=== PATIENT | female | born 1970 | race Caucasian/White ===

== ENCOUNTER 2019-03-03 08:16 | Emergency (ER) | payer MEDICAID, OTHER ==
[~2019-03-03] VITALS: Ht 157.5 cm; Wt 89.0 kg
[2019-03-03 08:19] VITALS: BP 134/82; PULSE 75; RESP 16; Ht 157.5 cm; Wt 89.0 kg
[2019-03-03] MEDS ORDERED: KETOROLAC 30 MG INJ IM STA (08:41)
[2019-03-03] MEDS ORDERED: NAPR-985 PO (09:51)
--- NOTE | 2019-03-03 16:44 | ERD ---
ER Documentation Chief Complaint Chief Complaint RT KNEE AND CALF PAIN X 3 WEEKS , DENIES ANY INJURY HPI Patient is a 48-year-old female, no past medical history, presents the ER for concerns of right knee pain x3 weeks.. Contrary note, patient does not have complaints of calf pain. Patient says she is also having foot pain. She denies of falls or trauma. 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 Patient denies any fevers or chills. Patient denies any redness to the affected joint. Patient is able to ambulate. Patient has been taking ibuprofen with no alleviation of symptoms. Patient denies any hormonal use, unilateral leg swelling, recent air travel or history of recent surgeries. Patient denies previous history of DVT. ROS All systems reviewed and are negative except as per history of present illness. Medications Home Meds Active Scripts Naproxen* (Naprosyn*) 500 Mg Tablet, 500 MG PO BID PRN for PAIN AND/OR INFLAMMATION, #15 TAB Prov:SHIREEN URBAN PA-C 03/03/19 Allergies Allergies: Coded Allergies: No Known Allergy (Unverified , 03/03/19) PMhx/Soc Hx Alcohol Use: No Hx Substance Use: No Hx Tobacco Use: No Smoking Status: Never smoker FmHx Family History: No diabetes Physical Exam Vitals Vital Signs Date Temp Pulse Resp B/P (MAP) Pulse Ox O2 O2 Flow FiO2 Time Delivery Rate 03/03/19 97.9 75 16 134/82 97 08:19 (99) Physical Exam GENERAL: Well-developed, well-nourished female. Appears in no acute distress. HEAD: Normocephalic, atraumatic. EYES: Pupils are equally reactive bilaterally. EOMs grossly intact. No conjunctival erythema. ENT: Moist mucous membranes. No uvula deviation. No kissing tonsils. NECK: Supple. No meningismus. Normal range of motion of the neck. LUNG: Clear to auscultation bilaterally. No rhonchi, wheezing, rales or coarse breath sounds. HEART: Regular rate and rhythm. No murmurs, rubs or gallops. EXTREMITIES: Equal pulses bilaterally. No peripheral clubbing, cyanosis or edema. No unilateral leg swelling. NEUROLOGIC: Alert and oriented. Moving all four extremities without any difficulty. Normal speech. Steady gait. SKIN: Normal color. Warm and dry. No rashes or lesions. RLE: No deformity, erythema, ecchymosis. Mild swelling noted to the anterior knee. Tender to palpation over the tibial tuberosity. Tender to palpation over the tibial tuberosity. Sensation intact to light touch. Neurovascularly intact. (Able to plantarflex, dorsiflex, elina foot, invert foot, raise big toe.) 2+ DP and DT pulses. No calf swelling. No pain with dorsiflexion. No palpable cords. Results 24 hrs Laboratory Tests Test 03/03/19 08:44 POC Beta HCG, Qualitative NEGATIVE Current Medications Medications Dose Sig/Sanjuana Start Time Status Last (Trade) Ordered Route PRN Stop Time Admin Dose Reason Admin Ketorolac 30 mg ONCE STAT 03/03/19 DC 03/03/19 Tromethamine IM 08:41 08:50 (Toradol) 03/03/19 08:42 Procedures/MDM ED COURSE: The patient was stable throughout ED course. I kept the patient and/or family informed of laboratory and diagnostic imaging results throughout the ED course. DIAGNOSTIC IMAGING: Read by radiologist. 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 CLINICAL INDICATION: R knee pain TECHNIQUE: AP, lateral and tunnel views of the right knee were obtained. The images reviewed on a PACS workstation. COMPARISON: None. FINDINGS: Mineralization is intact. No displaced fracture identified. Patellofemoral marginal osteophyte formation, likely mild cartilage space narrowing, and subchondral cystic change in the superior patella. Minimal medial tibio-femoral and lateral tibio-femoral marginal osteophytic lipping. No significant joint effusion. Soft tissue fullness in the posterior knee may be summation of shadows and muscles. IMPRESSION: 1. No displaced fracture identified. 2. 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 3. Soft tissue fullness posterior to the knee may be summation of shadows with gastrocnemius musculature. Correlate clinically. Follow-up MRI may be obtained if clinically indicated. RPTAT: BBDD Physician Ale Date Time Electronically viewed and signed by Physician Ale on 03/03/2019 09:19 RG/ CC: SHIREEN URBAN PA-C [id number] PROCEDURES: SPLINT APPLICATION: The patient was verbally consented at bedside prior to splint application. Patient was explained the risks, benefits and alternatives to this procedure. The patient was neurovascularly intact prior to and status post application of the splint. The patient tolerated the procedure well with no complications. Splint type: armin wrap Extremity: R knee Indication: No displaced fracture identified. 2. 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 3. Soft tissue fullness posterior to the knee may be summation of shadows with gastrocnemius musculature. Correlate clinically. Follow-up MRI may be obtained if clinically indicated. MEDICAL DECISION MAKING: This is a 48-year-old female presents the ER for concerns of right knee pain x3 weeks. Patient denied any falls or trauma. Patient does work as a commercial lease administrator she is often working on her knees.. Vital signs were reviewed. Patient was afebrile. X-ray imaging was negative for fracture or dislocation. See formal report above. Patient does have evidence of osteoarthritis. Patient was given Armin wrap. Patient advised to follow-up with drug safety specialist on outpatient basis. Low suspicion for femur fracture, patella fracture, tibial plateau fracture, septic joint, gout, popliteal cyst, DVT or compartment syndrome. At this time, unable to rule out any meniscus and knee ligament injuries. PRESCRIPTIONS: Naproxen DISCHARGE: At this time, patient is stable for discharge and outpatient management. RICE therapy and ROM exercises were advised to avoid stiffness. I have instructed the patient to follow-up with his/her primary care physician in 1-2 days. I have discussed with the patient the possibility of needing to see an drug safety specialist for further workup and imaging if the pain persists. I have instructed the patient to promptly return to the ER for any new or worsening symptoms including increased pain, swelling, redness, warmth or fever. The patient and/or family expressed understanding of and agreement with this plan. All questions were answered. Home care instructions were provided. Disclaimer: Inadvertent spelling and grammatical errors are likely due to EHR/dictation software use and do not reflect on the overall quality of patient care. Also, please note that the electronic time recorded on this note does not necessarily reflect the actual time of the patient encounter. Departure Diagnosis: Primary Impression: Right knee pain Chronicity: acute Qualified Codes: M25.561 - Pain in right knee Condition: Fair Patient Instructions: Knee Pain, Uncertain Cause Referrals: [facility] YOU HAVE RECEIVED A MEDICAL SCREENING EXAM AND THE RESULTS INDICATE THAT YOU DO NOT HAVE A CONDITION THAT REQUIRES URGENT TREATMENT IN THE EMERGENCY DEPARTMENT. FURTHER EVALUATION AND TREATMENT OF YOUR CONDITION CAN WAIT UNTIL YOU ARE SEEN IN YOUR DOCTORS OFFICE WITHIN THE NEXT 1-2 DAYS. IT IS YOUR RESPONSIBILITY TO MAKE AN APPOINTMENT FOR FOLOW-UP CARE. IF YOU HAVE A PRIMARY DOCTOR --you should call your primary doctor and schedule an appointment IF YOU DO NOT HAVE A PRIMARY DOCTOR YOU CAN CALL OUR PHYSICIAN REFERRAL HOTLINE AT IF YOU CAN NOT AFFORD TO SEE A PHYSICIAN YOU CAN CHOSE FROM THE FOLLOWING [facility] [address] [facility]. [facility] [address] [facility]. [facility] [address] [facility] [facility] [address] [facility] [facility] [address] [facility]. [facility]. [address] [facility]. [facility] YOU HAVE RECEIVED A MEDICAL SCREENING EXAM AND THE RESULTS INDICATE THAT YOU DO NOT HAVE A CONDITION THAT REQUIRES URGENT TREATMENT IN THE EMERGENCY DEPARTMENT. FURTHER EVALUATION AND TREATMENT OF YOUR CONDITION CAN WAIT UNTIL YOU ARE SEEN IN YOUR DOCTORS OFFICE WITHIN THE NEXT 1-2 DAYS. IT IS YOUR RESPONSIBILITY TO MAKE AN APPOINTMENT FOR FOLOW-UP CARE. IF YOU HAVE A PRIMARY DOCTOR --you should call your primary doctor and schedule and appointment IF YOU DO NOT HAVE A PRIMARY DOCTOR YOU CAN CALL OUR PHYSICIAN REFERRAL HOTLINE AT . IF YOU CAN NOT AFFORD TO SEE A PHYSICIAN YOU CAN CHOSE FROM THE FOLLOWING [facility] INSTITUTIONS: [facility] [address] [place] [address] [facility] [address] [place] [address] [facility] [address] [place] [address] [facility] 7 a.m.- 11 p.m. Every Day of the Week NO APPOINTMENT OR AUTHORIZATION NEEDED Additional Instructions: Llame al doctor MAANA y lorelei valdemar MICHELLE PARA DENTRO DE 1-2 HUGO.Dgale a la secretaria que nosotros le instruimos hacer esta michelle.Avise o llame si schulz condicin se empeora antes de la michelle. Regresa aqui si peor o no mejor. SHIREEN URBAN PA-C March 03, 2019 16:44
== END 2019-03-03 09:59 | disposition home or self-care (01) ==
LOC: FTE 08:16
DX: M25.561 Pain in right knee (principal)
CPT/HCPCS: 73562; 81025; J1885; 96372